=== PATIENT | male | born 1950 | race Caucasian/White ===

== ENCOUNTER → 2019-11-18 | Outpatient (CLI) | payer MEDICARE | END | disposition home or self-care (01) | LOC: SHCH 07:49 | PROVIDERS: ATTEND Internal Medicine Cardiovascular Disease | DX: I71.4 Abdominal aortic aneurysm, without rupture (principal) | CPT/HCPCS: 93978 ==

== ENCOUNTER → 2024-12-31 | Outpatient (CLI) | payer MEDICARE ==
--- NOTE | 2025-01-02 09:29 | HMCSR ---
APPROVED REPORT Indications F/U AAA , Prior 3-4-24 Duplex Results A/PTransverseLongitudinalVelocityWaveform Proximal Aorta 2.28cm2.40cm2.36cm71.40 cm/sec Mid Aorta 2.36cm2.38cm2.17cm94.00 cm/sec Distal Aorta 3.92cm3.88cm3.89df444.70 cm/sec Rt. Common Iliac Artery1.41cm1.53cm1.46gg737.70 cm/sec Lt. Common Iliac Artery 1.39cm1.35cm1.73yx962.40 cm/sec Techologist Impression There is evidence of an abdominal aortic aneurysm in the mid-distal abdominal aorta measuring 3.92 x 3.88 x 3.84 CM The bilateral iliac arteries appear patent and normal in size. Pt. was not fasting. Conclusion There is evidence of an abdominal aortic aneurysm in the mid-distal abdominal aorta measuring 3.92 x 3.88 x 3.84 CM The bilateral iliac arteries appear patent and normal in size. Pt. was not fasting. Conclusion There is evidence of an abdominal aortic aneurysm in the mid-distal abdominal aorta measuring 3.92 x 3.88 x 3.84 CM The bilateral iliac arteries appear patent and normal in size. Pt. was not fasting.
== END | disposition home or self-care (01) ==
LOC: SHCH 07:50
PROVIDERS: ATTEND Internal Medicine Cardiovascular Disease
DX: I71.40 Abdominal aortic aneurysm, without rupture, unspecified (principal)
CPT/HCPCS: 93978

== ENCOUNTER → 2025-07-24 | Outpatient (CLI) | payer MEDICARE ==
[~2025-07-24] MED LIST: IOHEXOL 350 MG/ML 100ML INFUS..BTL IV ONE
--- NOTE | 2025-07-25 11:29 | HMCIMG ---
CTA ABDOMEN AND PELVIS WITH AND WITHOUT IV CONTRAST; 07/24/2025 10:26 AM MDT INDICATION: Abdominal aortic aneurysm without rupture COMPARISON: None available TECHNIQUE: Axial 3-mm and 0.75-mm contiguous slices from the lower thorax to the proximal pelvic iliac with 2-D postprocessing coronal and sagittal reformations. Total CTDIvol: 124.70 mGy. Total DLP: 1644.90 mGy-cm Automated Exposure Control was used to reduce patient radiation dose FINDINGS: Vice President Risk Management View: Negative for acute findings The pericardium appears to be normal.. Visualized heart within normal limits. . Visualized ribs are normal. No evidence of free intraabdominal air. Abdominal Vasculature: There is infrarenal abdominal aortic exophytic multilobed aneurysm measuring approximately the whole length is 7.2 with the widest diameter of 4.2 cm. There is a rind of thrombus surrounding is multilobed aneurysm on the left side of the abdominal aorta. There is diffuse atherosclerotic changes with calcified plaque involving abdominal aorta and iliac and femoral vessels. Celiac, superior/inferior mesenteric, renal, iliac or femoral branches. IVC appears normal. Liver: Liver contours are normal. No focal liver lesions are present. No evidence of intrahepatic or extrahepatic biliary dilation. Splenic, Mesenteric and Portal veins: Patent. Gallbladder: Normal CBD: Normal Pancreas: Normal. Spleen: Normal. Kidneys: Normal. The right kidney and upper pole there is a large exophytic cyst measuring 3.3 x 2.9 cm. Adrenal glands: Normal. Esophagus: Normal. Stomach: Normal. Duodenum, Small Bowel: Normal. Large Bowel: There are scattered diverticulosis with no evidence of diverticulitis. Appendix: Normal. Mesenteric and peritoneal surfaces: Normal. Lymph nodes: No evidence of retroperitoneal lymphadenopathy or significant mesenteric lymphadenopathy. PELVIS: No free fluid is seen in the pelvis. Urinary bladder: Normal. The prostate and seminal vesicle appears to be normal.: There is no mass or free fluid within the pelvis.. Bony Pelvis: Normal. . Lower thoracic and lumbar spine : Demonstrate osteoarthritic changes with marginal spurs. Soft tissues: Normal. IMPRESSION: 1. Left distal abdominal aorta before the bifurcation demonstrated multi focal exophytic aneurysm which measures 7.2 x 4.2 cm. 2. No evidence of acute intraabdominal or intrapelvic process. 3. Calcified and non-calcified atherosclerotic plaque formations of the aorta and descending branches.
== END | disposition home or self-care (01) ==
LOC: RAH 09:37
PROVIDERS: ATTEND Internal Medicine Cardiovascular Disease
DX: I71.40 Abdominal aortic aneurysm, without rupture, unspecified (principal); I70.0 Atherosclerosis of aorta; K57.30 Diverticulosis of large intestine without perforation or abscess without bleeding; M47.815 Spondylosis without myelopathy or radiculopathy, thoracolumbar region
CPT/HCPCS: 74174; Q9967

== ENCOUNTER 2025-10-02 12:00 | Inpatient (IN) | payer MEDICARE ==
[~2025-10-02] VITALS: Ht 175.3 cm; Wt 89.6 kg
[2025-10-02 12:52] LABS: APPEARANCE,URINE CLEAR (CLEAR); GLUCOSE, URINE (UA) NEGATIVE (NEGATIVE); LEUKOCYTE ESTERASE ,URINE NEGATIVE Leu/uL (NEGATIVE); NITRATE,URINE NEGATIVE (NEGATIVE); OCCULT BLOOD,URINE NEGATIVE (NEGATIVE)
[2025-10-02 12:53] LABS: ADD UA MICROSCOPIC NO
[2025-10-02 13:02] LABS: CREATININE 0.8 mg/dL (0.5-1.3); GLOMERULAR FILTR. RATE CALC 92.0 mL/min (>90); GLUCOSE,RANDOM 96.0 mg/dL (70-105); SODIUM SERUM 139.0 mmol/L (136-145); UREA NITROGEN, BLOOD 14.0 mg/dL (7-18)
[2025-10-02 13:06] LABS: INR 1.03 (0.85-1.15)
[2025-10-02 13:08] LABS: IMMATURE GRANULOCYTE ABSOLUTE 0.02 K/uL (0-1); NUCLEATED RED BLOOD CELLS 0.0 % (0.0-0.19); PLATELET COUNT (AUTO) 291 K/uL (130-400); RED BLOOD CELL COUNT(AUTO) 5.22 MIL/uL (4.50-6.20); RED CELL DISTRIBUTION WIDTH 13.5 % (11.0-15.5); WHITE BLOOD COUNT (AUTO) 7.6 K/uL (4.8-10.8)
[2025-10-02 14:03] VITALS: BP 146/76; PULSE 82; RESP 17; TEMP 99
--- NOTE | 2025-10-02 16:21 | HMCIMG ---
EXAM: XR Chest, 1 View. CLINICAL HISTORY: PRE OP. COMPARISON: None provided. FINDINGS: LUNGS: Prominent intertsital parenchymal markings are seen in bilateral lung ruiz. Atelectatic band is seen in left lower lobe. No consolidation. PLEURAL SPACES: No pleural effusion or pneumothorax. HEART: The heart size is normal. BONES: No acute osseous abnormality. IMPRESSION: 1. Chronic coarse interstitial parenchymal infiltrates. 2. Atelectatic band in left lower lobe. 3. No acute cardiopulmonary findings noted. /Spencer
--- NOTE | 2025-10-03 05:04 | EKG ---
[facility] Test Date: 2025-10-02 Test Time: 12:49:27 Pat Name: AYLIN SLADE Department: Room: 212 Gender: M Rn Immunology: [id number] : 1950 Requested By: Azeem LEAVITT Order Number: [id number] Reading MD: Marcellus Frazier Measurements Intervals [place] Rate: 68 P: 36 AR: 161 QRS: -90 QRSD: 98 T: 55 QT: 387 QTc: 413 Interpretive Statements Sinus rhythm Inferior infarct, old No previous ECG available for comparison Electronically Signed On 10-05-2025 13:05:05 HOSPICE MANAGER by Marcellus Frazier Please click the below link to view image of tracing.
[2025-10-05] VITALS (35 sets, daily range): BP systolic 109–153; BP diastolic 51–81; PULSE 66–99; RESP 13–18; TEMP 97.6–100; O2SAT 98–100
[2025-10-05] MEDS ORDERED: LIDOCAINE HCL 400MG/20ML VIAL ONE (06:55)
[2025-10-05] MEDS ORDERED: HEParin-NS 1,000 UNIT/500 ML 1,500 ML IV ONE (06:56)
[2025-10-05] MEDS ORDERED: SODIUM BICARB 50MEQ 50ML VIAL 50 ML ONE (06:56)
[2025-10-05] MEDS ORDERED: IODIXANOL 320 MG/ML 100 ML VIAL ONE (06:56)
[2025-10-05] MEDS ORDERED: NITROGLYCERIN 50MG VIAL ONE (06:57)
[2025-10-05] MEDS ORDERED: MIDAZOLAM HCL 1 MG/ML 2ML VIAL ONE (07:00)
[2025-10-05] MEDS ORDERED: ATROPINE 1MG SYG IVP ONE (08:17)
[2025-10-05] MEDS ORDERED: NEOSTIGMINE METHYLSULFATE 1MG/ML IV ONE (09:27)
[2025-10-05] MEDS ORDERED: GLYCOPYRROLATE 0.2 MG/ML 5 ML VIAL ONE (09:28)
[2025-10-05] MEDS ORDERED: NOREPINEPHRIN 4MG/NS 250ML 250 ML IV SCH (09:30)
[2025-10-05] MEDS ORDERED: NITROGLYCERIN 50MG/D5W 250ML 250 BOT IV SCH (09:30)
[2025-10-05] MEDS: 0.9%NACL 1000ML 1,000 ML IV SCH (18:05)
[2025-10-06] VITALS (22 sets, daily range): BP systolic 101–145; BP diastolic 51–89; PULSE 72–92; RESP 16–22; TEMP 98.3–98.9; O2SAT 98
--- NOTE | 2025-10-06 03:56 | CCATH ---
PROCEDURES: * Percutaneous access and repair of the right and left common femoral arteries for a 14-Vincentian sheath. * Placement of a pigtail catheter in the abdominal aorta. * Abdominal aortogram. * Placement of a bifurcated endoluminal graft in the infrarenal abdominal aorta, Medtronic Endurant IIS 25 x 14 x 103. * Placement of right and left iliac extension limbs, Endurant II 16 x 13 x 93 on the right and 16 x 13 x 124 on the left. 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 ANESTHESIA: General anesthesia with endotracheal intubation. ESTIMATED BLOOD LOSS: Less than 50 mL. RED HAT LINUX ENGINEER: Jazmine Dupree II, MD COMPLICATIONS: None. TOTAL CONTRAST: 80 mL. DESCRIPTION OF PROCEDURE: The patient was taken to the Cardiac Assistant Surveyor after appropriate operative consent was signed. He was prepped and draped in the usual sterile fashion. After anesthesia was induced, the right and left common femoral artery region was infiltrated with 2% Xylocaine. Right access was obtained with a 6-Vincentian sheath. Pre-close sutures were deployed on the right with sutures placed at 11 and 1 o'clock respectively. We upsized to a 9-Vincentian sheath. On the left, similarly, two pre-close sutures were placed at 11 and 1 o'clock respectively after the 6-Vincentian sheath was advanced. Ultrasound was utilized to access the vessels. At this point, Omniflush marker pigtail catheter was advanced and positioned above the level of the abdominal aorta. Abdominal aortogram was performed in AP projection with digital acquisition. Landmarks were identified. The main body of the graft was advanced by the right common femoral iliac artery/common femoral artery and placed below the level of the right renal artery, which is the lower renal artery. The graft was deployed and the contralateral gate was cannulated from the left and an extension limb was placed via the left femoral access. At this point, a right extension limb was then placed. The device was dilated with a Reliant Medtronic balloon. Both limbs were dilated with Medtronic Reliant balloon. Final angiographic result was performed identifying adequate graft position with patent renals and internal and external iliacs. There was no evidence of endoleak. The femoral arteries were repaired with two pre-close sutures on the right and the left that had been deployed previously. Additionally, we placed a third suture on the left because of minor oozing that was placed at 12 o'clock position with adequate hemostasis. At the end of the procedure, the patient was stable and tolerated the procedure well and left the rn lab in stable condition. FINAL IMPRESSION: Successful endoluminal graft placement in the abdominal aorta and right and left common iliac arteries with good angiographic results. PLAN: Continue medical management. TID: [id number] RECEIPT: [id number]
[2025-10-06 05:02] LABS: NUCLEATED RED BLOOD CELLS 0.0 % (0.0-0.19); PLATELET COUNT (AUTO) 224.0 K/uL (130-400); RED BLOOD CELL COUNT(AUTO) 4.14 MIL/uL (4.50-6.20); RED CELL DISTRIBUTION WIDTH 13.7 % (11.0-15.5); WHITE BLOOD COUNT (AUTO) 11.4 K/uL (4.8-10.8)
[2025-10-06 05:15] LABS: CREATININE 0.7 mg/dL (0.5-1.3); GLOMERULAR FILTR. RATE CALC 96.0 mL/min (>90); GLUCOSE,RANDOM 107.0 mg/dL (70-105); SODIUM SERUM 138.0 mmol/L (136-145); UREA NITROGEN, BLOOD 11.0 mg/dL (7-18)
--- NOTE | 2025-10-06 07:20 | NUR ---
DR. LEAVITT CAME AND HAS SEEN THE PATIENT. MD EXAMINED THE PATIENT, DRESSING BOTH GROINS WERE REMOVED, MD ASSESSED THE SIGHT. MD ALSO ORDERED TO REMOVE THE BOOTHE AND WAS DONE. PATIENT WAS SIT UP ON THE CHAIR WHICH HE TOLERATED THE PROCEDURE.
--- NOTE | 2025-10-06 09:48 | CONS ---
[facility] CONSULTATION NOTE Date Patient Seen: Oct 05, 2025 Time of Visit: 13:40 Supervising Physician: SHERIN CHAKRABORTY Reason for Consultation: MEDICAL MANAGEMENT Primary Care Physician: ALBERT PULLIAM MD Outpatient Specialists: [ ] Inpatient Consults: DR. 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 Lozano ,tolerated well, today I saw the patient he is awake, alert, not in distress, no report of fevers, chills, nausea or vomiting. No chest pain or palpitations. He has a history of smoking x 20 years 1 pkt daily, vital signs has remained stable, plan is to continue monitoring closely, follow up on Dopplers protocol, monitor for any signs of bleeding and wean off from oxygen as tolerated. SUMMARY PLAN DOPPLERS PROTOCOL MONITOR FOR ANY SIGNS OF BLEEDING MONITOR VITAL SIGNS WEAN OFF FROM OXYGEN TOLERATED. PAST MEDICAL HX: see above PAST SURGICAL HX: noncontributory SOCIAL HISTORY: CHRONIC SMOKER X 20 YEARS Coded Allergies: No Known Drug Allergies (Unverified Allergy, Unknown, 10/02/25) REVIEW OF SYSTEMS: 12 point ROS reviewed with patient. Pertinent positives mentioned above. Otherwise negative. PHYSICAL EXAM: GENERAL: alert, weak, awake oriented x 3 HEENT: EOMI, Sclera non icteric, moist mucosa NECK: Supple, no JVD, trachea midline LUNGS: Clear breath sounds bilaterally. No wheezes HEART: Regular rate and rhythm. Normal S1 and S2, without murmurs ABD: Abdomen soft, nontender. Bowel sounds present EXT: No clubbing cyanosis or edema NEURO: Alert and oriented to person, follows commands Vital Signs (last 8hr) Date Time Temp Pulse Resp B/P (MAP) Pulse Ox O2 Delivery O2 Flow Rate FiO2 10/06/25 07:41 98.2 10/06/25 07:15 98 Nasal Cannula* 2 28 10/06/25 04:00 98 Nasal Cannula* 2 28 10/06/25 04:00 98.8 73 17 120/51 95 10/06/25 03:00 72 16 121/65 95 10/06/25 02:00 82 17 128/60 96 LABS: Hematology Labs: Test 10/06/25 04:49 Range/Units White Blood Count 11.4 H 4.8-10.8 K/uL Red Blood Count 4.14 L 4.50-6.20 MIL/uL Hemoglobin 12.4 L 14.0-18.0 g/dL Hematocrit 38.7 L 42-54 % Mean Corpuscular Volume 93.5 79-99 fL Mean Corpuscular Hemoglobin 30.0 27.0-33.0 pg Mean Corpuscular Hemoglobin Concent 32.0 32.0-36.0 g/dL Red Cell Distribution Width 13.7 11.0-15.5 % Platelet Count 224 130-400 K/uL Mean Platelet Volume 8.9 7.5-10.5 fL Nucleated Red Blood Cells 0.0 0.0-0.19 % Chemistry Labs: Test 10/06/25 04:49 Range/Units Sodium Level 138 136-145 mmol/L Potassium Level 3.9 3.5-5.1 mmol/L Chloride Level 106 101-111 mmol/L Carbon Dioxide Level 23 21-32 mmol/L Blood Urea Nitrogen 11 7-18 mg/dL Creatinine 0.7 0.5-1.3 mg/dL Glomerular Filtration Rate Calc 96 >90 mL/min Random Glucose 107 H 70-105 mg/dL Total Calcium 7.3 L 8.5-10.1 mg/dL DIAGNOSTICS / RADIOLOGY RESULTS: REVIEWED PLAN NEURO: Minimize central acting medications as possible. Fall Precautions. Well lighted room through the day and minimize interruptions through the night to prevent acute delirium. PULMONARY: Supplemental 02 as needed Titrate Fio2 to keep Spo2 > or = 90% DuoNebs and CPT as needed IS hourly while awake for pulmonary hygiene Out of bed to chair as tolerated VAP Bundle Vent/BIPAP Settings: [ ] Driving pressure: [ ] P Plat: [ ] Static C: [ ] Static R: [ ] P/F Ratio: [ ] CARDIOVASCULAR: Follow hemodynamics. Titrate vasopressor to keep MAP >65 or systolic blood pressure >95mmHg DIPS: [ ] LINES: [ ] GI & NUTRITION: Continue nutritional support Aspirations precautions Prokinetic agents and laxatives as needed KIDNEYS & ELECTROLYTES: Strict monitoring of intake and output Daily weights Avoid nephrotoxic agents Monitor electrolytes and replace as needed Goal urine output of 30mL/hr or 0.5mL/kg/hr Urine output: [ ] Fluid Balance: [ ] ENDOCRINE: Maintain blood glucose between 100-180 at all times. Insulin sliding scale for blood glucose management INFECTIOUS DISEASE: Trend temperature. Figueroa-culture if febrile. Micro: [ ] Antibiotics: [ ] HEMATOLOGY & COAGULATION: Monitor H&H. Keep Hgb > 7 Transfuse 1 unit of PRBC for Hgb < 7 Transfuse 1 pack of platelets of platelets < 20, 000 Watch for any signs and symptoms of bleeding SKIN: Pressure ulcer prevention per facility protocol Rehab: PT/OT Prophylaxis: GI: [ ] DVT: [ ] Code Status: Full Resuscitation Disposition: [ ] Other: Total patient care time 35 minutes excluding all procedures. ATTESTATION BY PHYSICIAN Documentation assistance provided by a scribe, information recorded by the scribe was done at my direction and has been reviewed and validated by me." SHERIN CHAKRABORTY MD I personally scribed for SHERIN CHAKRABORTY MD ([email or web address]) on 10/06/25 at 09:48. Electronically submitted by Cynthia Larry ([email or web address]). SHERIN CHAKRABORTY MD Oct 06, 2025 09:48
--- NOTE | 2025-10-06 10:41 | PN ---
This is a pleasant gentleman, who was evaluated by Dr. Gould and was referred to me for additional management of an expanding infrarenal abdominal aortic aneurysm with dissection. The patient was hospitalized yesterday and underwent endoluminal graft repair with good results. Postoperatively, the patient has been doing really well. He has been afebrile. He has had no active cardiac complaints. He has had no abdominal or back pain. The patient's exam reveals a soft, benign abdomen. There is no guarding or rebound and no pulsations. The lower extremities appear to be well perfused. The dorsalis pedis pulses are excellent and the foot is warm bilaterally. The groin exit sites are healing nicely with no evidence of hematoma or ecchymosis. The patient's laboratory studies this morning revealed a sodium of 138 with a potassium of 3.9, a chloride of 106, CO2 of 23 with a BUN of 11, creatinine of 0.7 with a GFR of 96. The white count is 11.4 with an H and H of 12.4 and 38.7 respectively and a platelet count of 224,000. At this point, the patient appears to be stable and is progressing nicely. From the cardiac standpoint, the patient will be evaluated as an outpatient once he has been dismissed. We would like to thank you for allowing me to participate in the care of this gentleman. TID: [id number] RECEIPT: [id number]
--- NOTE | 2025-10-06 14:52 | NUR ---
DCP: HOME pt lives a home with [phone]. Pt reports he is independent, uses no DME or in home care services. PCP is Mary Anne Swenson and uses [facility]ome for rx. Pt states he will dc home today. Denies dc needs.
--- NOTE | 2025-10-06 15:22 | DS ---
[facility] DISCHARGE SUMMARY Date Patient Seen: Oct 06, 2025 Time of Visit: 15:22 Supervising Physician: Dr. Ortez Primary Care Physician: ALBERT PULLIAM MD Outpatient Specialists: [ ] Inpatient Consults: DR. 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 Lozano ,tolerated well, today I saw the patient he is awake, alert, not in distress, no report of fevers, chills, nausea or vomiting. No chest pain or palpitations. He has a history of smoking x 20 years 1 pkt daily, vital signs has remained stable, plan is to continue monitoring closely, follow up on Dopplers protocol, monitor for any signs of bleeding and wean off from oxygen as tolerated. The patient was treated for the following problems: Patient was admitted for repair of a bilobed infrarenal abdominal aneurysm with dissection. Patient underwent aneurysm repair with intraluminal grafting performed by Dr. Durant been Dr. Haddad on 10/05/2025. Patient tolerated the procedure well and has been cleared by Cardiology for discharge without recommendations for medication adjustment. Patient advised to follow up with Cardiology this week and resume home medications. 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 S/p intraluminal graft on 10/06/2025 CHRONIC PROBLEMS: continue previous management per PCP unless otherwise indicated PANTOGRAPHER FINDINGS/RECOMMENDATIONS: [ ] PROCEDURES: as mentioned above DISCHARGE MEDICATIONS: No changes to medication regimen on this admission Pt hemodynamically stable and afebrile at time of discharge. PCP notified of patients admission, hospital course and discharge. PHYSICAL EXAM: GENERAL: alert, weak, awake oriented x 3 HEENT: EOMI, Sclera non icteric, moist mucosa NECK: Supple, no JVD, trachea midline LUNGS: Clear breath sounds bilaterally. No wheezes HEART: Regular rate and rhythm. Normal S1 and S2, without murmurs ABD: Abdomen soft, nontender. Bowel sounds present EXT: No clubbing cyanosis or edema NEURO: Alert and oriented to person, follows commands FOLLOW-UP: Follow-up with PCP in 2-3 days Follow up with Cardiology in the next 2-3 days RECOMMENDATIONS: See Discharge Instructions This case was seen and discussed with my supervising physician. More than 30 minutes spent on discharge process, including evaluation of the patient, discussion with nursing staff, medication reconciliation and follow-up appointments AGNES ESQUIVEL PAC Oct 06, 2025 15:22
--- NOTE | 2025-10-06 16:36 | NUR ---
PATIENT WAS DISCHARGED HOME BY WHEELCHAIR. NO DISTRESS NOTED.
== END 2025-10-06 16:37 | disposition home or self-care (01) | DRG 213 ==
LOC: DAHIP 10-05 06:02 → 2CV 10-05 09:55 → EDSTATUS 10-05 12:00
PROVIDERS: ADMIT Internal Medicine Cardiovascular Disease; ATTEND Internal Medicine Cardiovascular Disease
PROC: 04V03EZ Restriction of Abdominal Aorta with Branched or Fenestrated Intraluminal Device, One or Two Arteries, Percutaneous Approach (ICD-10-PCS; principal; 2025-10-05)
PROC: B4101ZZ Fluoroscopy of Abdominal Aorta using Low Osmolar Contrast (ICD-10-PCS; 2025-10-05)
PROC: 04VC3DZ Restriction of Right Common Iliac Artery with Intraluminal Device, Percutaneous Approach (ICD-10-PCS; 2025-10-05)
PROC: 04VD3DZ Restriction of Left Common Iliac Artery with Intraluminal Device, Percutaneous Approach (ICD-10-PCS; 2025-10-05)
DX: I71.43 Infrarenal abdominal aortic aneurysm, without rupture (principal); I71.02 Dissection of abdominal aorta; Z87.891 Personal history of nicotine dependence
CPT/HCPCS: 34705; 34713; 36415; 71045; 80048; 81003; 85025; 85027; 85347; 85610; 85730; 86850; 86900; 86901; 93005; A4344; A4606; C1725; C1760; C1769; C1887; C1894; G0378; J0461; J0690; J1644; J2250; J2371; J2405; J2704; J2710; J3010; J3490; Q9967; A4215; A4216; A4221; A4222; A4223; A4663